=== PATIENT | female | born 1990 | race Two or more races ===

== ENCOUNTER 2018-10-28 18:03 | Emergency (ER) | payer MEDICAID, OTHER ==
[~2018-10-28] VITALS: Ht 165.1 cm; Wt 63.6 kg
[2018-10-28 18:11] VITALS: BP 115/82
[2018-10-28] MEDS ORDERED: penicillin G benzathine 1.2 million unit/2ml syringe IM ONE (19:15)
== END 2018-10-28 19:58 | disposition home or self-care (01) ==
LOC: ER 18:04
DX: J02.0 Streptococcal pharyngitis (principal); B95.0 Streptococcus, group A, as the cause of diseases classified elsewhere; F12.90 Cannabis use, unspecified, uncomplicated
CPT/HCPCS: 87880; 96372; 99283; J0561